=== PATIENT | male | born 1980 | race Caucasian/White ===

== ENCOUNTER 2019-08-08 18:46 | Emergency (ER) | payer OTHER ==
[~2019-08-08] VITALS: Ht 180.3 cm; Wt 117.9 kg
[2019-08-08] MEDS ORDERED: MUCINEX1200 MG PO (22:52)
[2019-08-08] MEDS ORDERED: PROMETH-CODEIN 65 ML PO (22:52)
== END 2019-08-08 23:14 | disposition home or self-care (01) ==
LOC: ER 18:46
DX: B34.9 Viral infection, unspecified (principal)